=== PATIENT | female | born 1950 | race Caucasian/White ===

== ENCOUNTER → 2017-11-23 | Outpatient (CLI) | payer OTHER ==
--- NOTE | 2017-11-23 13:04 | DIAGNOSTIC IMAGING REPORT ---
CHEST 2 VIEWS ROUTINE CLINICAL HISTORY: R22.9, R07.89 STERNAL PAIN. COMPARISON STUDY: No previous studies for comparison. FINDINGS: The cardiac and mediastinal contours are normal. There is no evidence of focal pulmonary consolidation. There is no evidence of failure. No pleural effusions are visualized.[ Degenerative changes are present within the dorsal spine. IMPRESSION: No active disease in the chest. Electronically signed by: Catarino Jim M.D. 11/23/2017 1:02 PM Dictated Date/Time: 11/23/2017 1:02 PM
== END | disposition home or self-care (01) ==
LOC: C.RAD1850 12:51
PROVIDERS: ATTEND Nurse Practitioner Family
DX: R22.9 Localized swelling, mass and lump, unspecified (principal); R07.89 Other chest pain